=== PATIENT | male | born 2000 | race Caucasian/White ===

== ENCOUNTER 2023-12-26 15:04 | Emergency (ER) | payer OTHER, SELFPAY ==
[2023-12-26 15:13] VITALS: BP 147/85; PULSE 68; RESP 17; TEMP 36.7; O2SAT 100; BMI 28.5
--- NOTE | 2023-12-26 15:13 | XRR_ITS ---
PROCEDURE INFORMATION: Exam: XR Left Foot Exam date and time: 12/26/2023 3:23 PM Age: 23 years old Clinical indication: Injury or trauma; Other: Refrigerator & karina fell on foot; Blunt trauma; Injury details: PT was taking a fridge up the stairs on a karina when the whole unit slipped and landed on pt's left foot. PT is ambulatory with a steady gait. ; Additional info: Trauma/pain TECHNIQUE: Imaging protocol: Radiologic exam of the left foot. Views: 3 or more views. COMPARISON: No relevant prior studies available. FINDINGS: Bones/joints: Normal. Soft tissues: Normal. XR/XR foot LT min 3V* [id number] IMPRESSION: No acute findings.
--- NOTE | 2023-12-26 15:41 | ED_ITS ---
HPI - Extremity Problem General: Chief complaint: Extremity Injury, Lower Stated complaint: left foot pain, dropped karina on foot Time Seen by Provider: 12/26/23 15:10 Source: patient Mode of arrival: wheelchair Limitations: no limitations History of Present Illness: Patient is a 23-year-old male presenting to the emergency department complaining of left foot pain just prior to arrival. Patient states he was using a karina to move a large refrigerator, as he was navigating it down some steps and missed a step and landed on his left foot. He notes immediate onset of pain to the dorsal aspect of the foot, and while he has tried to ambulate on it, he states the pain is too severe. He has no prior surgeries or injuries to that foot. He does note swelling along with the pain, denies any bruising or neurological changes. No ankle pain or extension of the pain proximally. He has not used ice or taken any medications for his pain at this time. MD Complaint: extremity pain Onset (ago): minute(s) Pain Consistency: constant Location: right Radiation: none Relieving factors: nothing Exacerbating factors: weight bearing Associated symptoms: Reports no associated symptoms; Deny chest pain, fever(s) or rash Review of Systems General: Reports: 10 or more systems reviewed and unremarkable except in HPI and below Const: Denies: fever(s), chills or fatigue Eyes: Denies: change in vision ENMT: Denies: throat pain, ear or mastoid pain or nasal discharge Card: Denies: chest pain, palpitations, swelling of feet/ankles or lightheadedness Resp: Denies: dyspnea, productive cough or wheezing GI: Denies: abdominal pain, nausea, vomiting, diarrhea or constipation : Denies: flank pain, difficulty urinating, dysuria or urinary frequency Musc: Reports: extremity pain (rt foot) and extremity swelling (rt foot); Denies: neck pain, back pain, joint pain, joint swelling or joint redness Skin/Breast: Denies: rash Neuro: Denies: headache(s), numbness in extremities or weakness in extremities Physical Exam Const: COMMON NORMALS: no acute distress, average body habitus, patient oriented x3, no limitations, healthy appearing, alert and well nourished HENMT: COMMON NORMALS: normocephalic and atraumatic HEAD & SCALP: normocephalic and atraumatic Eye: COMMON NORMALS: EOMs intact bilaterally and conjunctivae normal CONJUNCTIVA: Yes conjunctivae normal Neck/C-Spine: COMMON NORMALS: full ROM Resp: COMMON NORMALS: normal respiratory effort, No use of accessory muscles and clear to auscultation bilaterally AUSCULTATION: clear to auscultation bilaterally Cardio: COMMON NORMALS: regular rate and regular rhythm RATE: regular rate RHYTHM: regular rhythm Extremity: NARRATIVE EXTREMITY EXAM: There is swelling to the dorsal aspect of the left foot. Dorsum of the foot is moderately tender to palpation. There is no evidence of bruising or obvious deformity. Limited range of motion with dorsiflexion and plantarflexion of the left foot. Distal neurovascular status is intact. Good pulses. Normal ankle exam. Neuro: COMMON NORMALS: patient oriented x3, moves all extremities and no sensory deficits noted SENSORIUM/ORIENTATION: Yes alert Psych: COMMON NORMALS: mental status grossly normal Skin: COMMON NORMALS: no rashes or lesions noted GENERAL SKIN EXAM: no rashes or lesions noted Course Vital Signs: Vital signs: Vital Signs Temperature 98.1 F 12/26/23 15:13 Pulse Rate 68 12/26/23 15:13 Respiratory Rate 17 12/26/23 15:13 Blood Pressure 147/85 12/26/23 15:13 Pulse Oximetry 100 12/26/23 15:13 Oxygen Delivery Me thod Room Air 12/26/23 15:13 MDM - Extremity (Nontraumatic) Medical Decision Making Patient presented for evaluation of left foot injury after dropping a refrigerator on it while moving. He was not ambulatory here in the emergency department due to the pain. Examination did reveal swelling and tenderness to the dorsal aspect of the foot. There is no obvious evidence of a fracture or dislocation on x-ray of the left foot. We will wrap patient's foot with Urbano bandage and provide crutches to be weightbearing as tolerated. If his condition worsens or does not improve he will follow-up with primary care for reimaging. RICE therapy. Strict return precautions given. XR interpretation done by ED provider, pending radiology final review Discharge Plan Discharge Patient Disposition: Home Clinical Impression: Contusion of foot, left Qualifiers: Encounter type: initial encounter Qualified Code(s): S90.32XA - Contusion of left foot, initial encounter Condition: Stable Discharge Orders: Discharge ED (Routine); Ordered 12/26/23 Ordered By: Song Palma Discharge Diet: Usual diet Discharge Activity: Increase activity as tolerated Patient Instructions: Foot Contusion (ED) Activity Restrictions/Additional Instructions: Rest, ice, compression, and elevation as discussed. Ibuprofen and Tylenol at home. Weightbearing as tolerated. If your condition worsens or does not improve, follow-up with primary care. Return with any new or worsening. Coding Level of Care Code ED [employer] for [employer]
[2023-12-26] MEDS: ibuprofen 800 mg tablet PO (16:00)
== END 2023-12-26 17:14 | disposition home or self-care (01) ==
PROVIDERS: Emergency Provider Physician Assistant
DX: S90.32XA Contusion of left foot, initial encounter (principal); W22.8XXA Striking against or struck by other objects, initial encounter
CPT/HCPCS: 73630; 99283; E0114

== ENCOUNTER → 2024-08-23 08:36 | Outpatient (BNVA) | payer OTHER, SELFPAY | PROVIDERS: PCP Nurse Practitioner Family; Visit Provider Orthopaedic Surgery | DX: M25.511 Pain in right shoulder (principal); G89.29 Other chronic pain | CPT/HCPCS: 73030; 99214 ==

== ENCOUNTER 2025-02-08 10:28 | Outpatient (CLI) | payer OTHER, SELFPAY ==
[2025-02-08 10:39] VITALS: PULSE 80; RESP 18; O2SAT 99
== END 2025-02-08 10:29 | disposition home or self-care (01) ==
PROVIDERS: Visit Provider Chiropractor
DX: J45.998 Other asthma (principal)
CPT/HCPCS: 94060

== ENCOUNTER 2025-07-01 16:00 | Emergency (ER) | payer OTHER, SELFPAY ==
[2025-07-01 16:06] VITALS: BP 192/73; PULSE 68; RESP 14; TEMP 36.8; O2SAT 97; BMI 31.3
[2025-07-01 16:45] LABS: Hematocrit 42.8 % (37-53); Hemoglobin 14.10 g/dL (11.27-16.99); Mean Corpuscular HGB Conc 32.9 g/dL (30-55); Mean Corpuscular Hemoglobin 29.1 pg (27-33); Mean Corpuscular Volume 88.4 fl (82-101); Nucleated Red Blood Cells % 0 %; Platelet Count 291 10^3/cmm (157-399); Red Blood Count 4.84 10^6/uL (3.85-5.65); White Blood Count 11.71 10^3/uL (3.29-11.43)
[2025-07-01 16:54] VITALS: BP 137/79; PULSE 60; O2SAT 99
--- NOTE | 2025-07-01 16:55 | ED_ITS ---
HPI - Wound/Laceration 2 General: Chief Complaint: Wound/Laceration Stated Complaint: Bump on R side pain going down legs Time Seen by Provider: 07/01/25 16:25 Source: patient Mode of arrival: ambulatory Limitations: no limitations History of Present Illness: Patient is a 24-year-old male who presents the emergency department complaining of lesion to lower back. States that this started as a pimple a week ago, he popped it and since it has grown and has become more warm and red to the touch. States the pain radiates down his buttock region. No fevers or chills reported. No nausea or vomiting. Is reporting severe pain with sitting. Onset (ago): week(s) (1) Location: back (sacral region) Associated symptoms: Denies chills, fever(s), nausea or vomiting Related Data Previous Rx's ?Medication ?Instructions ?Recorded amoxicillin 875 mg-potassium 1 tab PO BID 7 days #14 t abs 07/01/25 clavulanate 125 mg tablet Allergies Allergy/AdvReac Type Severity Reaction Status Date / Time No Known Allergies Allergy Verified 07/01/25 16:09 Review of Systems 2 General: Reports: 10 or more systems reviewed and unremarkable except in HPI and below Const: Denies: fever(s) or chills Card: Denies: chest pain Resp: Denies: dyspnea GI: Denies: abdominal pain, nausea, vomiting or diarrhea Musc: Reports: back pain; Denies: extremity pain or joint pain Skin/Breast: Reports: erythema, skin pain, skin tenderness, new lesions and changing lesions; Denies: rash Neuro: Denies: headache(s) PFSH ED 2 PFSH: Medical History Shoulder dislocation Surgical History Status post surgery for recurrent dislocation of shoulder Social History Smoking and tobacco/nicotine status: never used tobacco/nicotine Physical Exam 2 Const: COMMON NORMALS: no acute distress, average body habitus, patient oriented x3, no limitations, healthy appearing, alert and well nourished HENMT: COMMON NORMALS: normocephalic and atraumatic HEAD & SCALP: n ormocephalic and atraumatic Neck/C-Spine: COMMON NORMALS: full ROM, no lymphadenopathy, supple and no meningeal signs Resp: COMMON NORMALS: normal respiratory effort, No use of accessory muscles and clear to auscultation bilaterally AUSCULTATION: clear to auscultation bilaterally Cardio: COMMON NORMALS: regular rate and regular rhythm RATE: regular rate RHYTHM: regular rhythm Extremity: COMMON NORMALS: full ROM and capillary refill normal Neuro: COMMON NORMALS: patient oriented x3 SENSORIUM/ORIENTATION: Yes alert MENINGEAL SIGNS: Yes no meningeal signs Skin: COMMON NORMALS: turgor normal NARRATIVE SKIN EXAM: Open draining abscess to the lower back, this is not in pilonidal location. Surrounding erythema, associated warmth GENERAL SKIN EXAM: turgor normal Procedures Abscess I/D Site: back Local Anesthetic: lidocaine 2% and with epi Amount of anesthesia used (mL): 5 Technique: other (Probed with hemostats) Amount of fluid expressed (mL): 5 Irrigation: Yes Packing used?: none Course 2 Vital Signs: Vital signs: Vital Signs Temperature 98.2 F 07/01/25 16:06 Pulse Rate 60 07/01/25 16:54 Respiratory Rate 14 07/01/25 16:06 Blood Pressure 137/79 07/01/25 16:54 Pulse Oximetry 99 07/01/25 16:54 MDM - Wound/Laceration Medical Decision Making This patient presented for evaluation of lesion to his back, stating it started as a pimple and after popping it it became worse and now is warm, red, exquisitely tender to palpation and actively draining pus. On exam to the low back there is evidence of an actively draining abscess with surrounding erythema and warmth indicative of cellulitis. This is not of location consistent with pilonidal cyst, this is more superior. It is anesthetized and with hemostats was attempting to break up loculations within the lesion, and express more fluid, of which minimal expression of purulence, it is dressed appropriately and ultimately he is to begin antibiotics for a week. He is informed of signs and symptoms to watch, it was also flushed here in the ED. His labs were unremarkable. He had significant relief of pain after local lidocaine. Lab Data 07/01/25 16:35 07/01/25 16:35 Laboratory Results WBC 11.71 10^3/uL (3.29-11.43) H 07/01/25 16:35 RBC 4.84 10^6/uL (3.85-5.65) 07/01/25 16:35 Hgb 14.10 g/dL (11.27-16.99) 07/01/25 16:35 Hct 42.8 % (37-53) 07/01/25 16:35 MCV 88.4 fl (82-101) 07/01/25 16:35 MCH 29.1 pg (27-33) 07/01/25 16:35 MCHC 32.9 g/dL (30-55) 07/01/25 16:35 RDW 13.4 % (12.1-15.1) 07/01/25 16:35 Plt Count 291 10^3/cmm (157-399) 07/01/25 16:35 MPV 9.3 fL (7.4-10.4) 07/01/25 16:35 Neut % (Auto) 58.9 % 07/01/25 16:35 Lymph % (Auto) 26.5 % 07/01/25 16:35 [facility] % (Auto) 8.7 % 07/01/25 16:35 Eos % (Auto) 5.2 % 07/01/25 16:35 Baso % (Auto) 0.4 % 07/01/25 16:35 Neut # (Auto) 6.89 10^3/uL (1.8-7.7) 07/01/25 16:35 Lymph # (Auto) 3.1 10^3/uL (0.8-4.8) 07/01/25 16:35 [facility] # (Auto) 1.0 10^3/uL (0.2-0.9) H 07/01/25 16:35 Eos # (Auto) 0.6 10^3/uL (0.0-0.8) 07/01/25 16:35 Baso # (Auto) 0.1 10^3/uL (0.0-0.1) 07/01/25 16:35 Nucleated RBC % (auto) 0 % 07/01/25 16:35 Nucleated RBCs # 0.0 /100WBC 07/01/25 16:35 ESR 5 mm/hr (0-10) 07/01/25 16:35 Sodium 141 mmol/L (136-145) 07/01/25 16:35 Potassium 3.8 mmol/L (3.5-5.1) 07/01/25 16:35 Chloride 103 mmol/L (98-107) 07/01/25 16:35 Carbon Dioxide 27 mmol/L (22-29) 07/01/25 16:35 Anion Gap 14.8 (5-19) 07/01/25 16:35 BUN 12 mg/dL (6-20) 07/01/25 16:35 Creatinine 1.2 mg/dL (0.7-1.2) 07/01/25 16:35 GFR Calculation 75.0 mL/min (90-130) L 07/01/25 16:35 Glucose 100 mg/dL (65-115) 07/01/25 16:35 Calculated Osmolality 292 mOsm/kg (285-295) 07/01/25 16:35 Lactic Acid 1.0 mmol/L (0.5-2.2) 07/01/25 16:35 Calcium 9.2 mg/dL (8.5-10.5) 07/01/25 16:35 Total Bilirubin 0.2 mg/dL (0.15-1.2) 07/01/25 16:35 AST 25 U/L (0-40) 07/01/25 16:35 ALT 36 U/L (0-41) 07/01/25 16:35 Alkaline Phosphatase 72 U/L (40-130) 07/01/25 16:35 C-Reactive Protein 22.3 mg/L (0.0-4.9) H 07/01/25 16:35 Total Protein 7.6 g/dL (6.6-8.7) 07/01/25 16:35 Albumin 4.2 g/dL (3.5-5.2) 07/01/25 16:35 Globulin 3.4 g/dL (1.3-4.6) 07/01/25 16:35 No radiology studies performed this visit Discharge Plan Discharge Patient Disposition: Home Clinical Impression: Abscess Condition: Stable Prescriptions: New amoxicillin-pot clavulanate 875-125 mg tablet 1 tab PO BID 7 Days Qty: 14 0RF Discharge Orders: Discharge ED (Routine); Ordered 07/01/25 Ordered By: Song Palma Patient Instructions: Patient Portal & Debbie Instructions Activity Restrictions/Additional Instructions: Discharge Instructions: Subcutaneous Abscess of Lower Back DISCHARGE INSTRUCTIONS Diagnosis: Subcutaneous abscess of lower back (NOT a pilonidal cyst) What Was Done Today: Your abscess was evaluated in the Emergency Department. Because it had already started draining on its own, we probed the area to ensure proper drainage. No packing was placed in the wound, and it has been left open to drain naturally. Medications: - Augmentin (amoxicillin-clavulanate): Take as prescribed twice daily for 7 days - Take this medication with food to reduce stomach upset and improve absorption - Complete the entire course of antibiotics even if you feel better - Common side effects include diarrhea, nausea, and upset stomach Wound Care at Home: - Keep the area clean and dry - Cover the wound with a clean, dry gauze dressing - Change the dressing daily or whenever it becomes wet or soiled - You may shower - gently clean the area with mild soap and water, then pat dry and apply a fresh dressing - It is normal for the wound to drain fluid for several days - Do not try to squeeze or press on the area Activity: - Avoid activities that put pressure on the lower back area - You may return to normal activities as tolerated, but avoid strenuous exercise until your follow-up appointment Follow-Up: - [facility] - Keep this appointment - it is important to ensure the abscess is healing properly RETURN TO THE EMERGENCY DEPARTMENT OR SEEK IMMEDIATE MEDICAL ATTENTION IF YOU DEVELOP: - Fever of 100.4?F (38?C) or higher - Increasing redness, swelling, or warmth around the wound - Red streaks spreading from the wound - Increasing pain that is not controlled with [id number] pain medication - Pus or foul-smelling drainage from the wound - The wound stops draining but swelling returns or increases - Chills, shaking, or feeling generally unwell - Nausea, vomiting, or inability to keep down fluids - Any new or worsening symptoms that concern you Additional Information: Your laboratory work today was reassuring. The abscess should continue to improve with proper wound care and antibiotics. If you have any questions or concerns before your follow-up appointment, do not hesitate to contact your healthcare provider. Print Language: Azeri Coding Level of Care Code ED [employer] Maker for Chaz Barber
[2025-07-01] MEDS: lidocaine-epi 2% 20 mL INJ INJECTION (16:57)
[2025-07-01 17:05] LABS: Lactic Sepsis W/Reflex 1.0 mmol/L (0.5-2.2)
[2025-07-01 17:06] LABS: Alanine Aminotransferase 36 U/L (0-41); Albumin Level 4.2 g/dL (3.5-5.2); Alkaline Phosphatase 72 U/L (40-130); Anion Gap 14.8 (5-19); Aspartate Amino Transferase 25 U/L (0-40); Blood Urea Nitrogen 12 mg/dL (6-20); Calcium 9.2 mg/dL (8.5-10.5); Carbon Dioxide 27 mmol/L (22-29); Chloride 103 mmol/L (98-107); Globulin 3.4 g/dL (1.3-4.6); Glucose 100 mg/dL (65-115); Osmolality Calculated 292 mOsm/kg (285-295); Potassium 3.8 mmol/L (3.5-5.1); Sodium 141 mmol/L (136-145); Total Protein 7.6 g/dL (6.6-8.7)
== END 2025-07-01 17:51 | disposition home or self-care (01) ==
PROVIDERS: Emergency Provider Physician Assistant
DX: L02.212 Cutaneous abscess of back [any part, except buttock and flank] (principal)
CPT/HCPCS: 10060; 80053; 83605; 85025; 85651; 86140; 87040; 99283; J9999